=== PATIENT | male | born 1970 | race Hispanic/Latino ===

== ENCOUNTER 2018-03-01 14:43 | Emergency (ER) | payer SELFPAY ==
[2018-03-01 15:50] LABS: #Basophils 0.1 thou/uL (0.0-0.2); #Eosinphils 0.1 thou/uL (0.0-0.7); #Lymphocytes 1.7 thou/uL (1.20-3.40); #Monocytes 0.6 thou/uL (0.11-0.59); #Neutrophils 3.2 thou/uL (1.40-6.50); %Basophils 1.4 % (0.0-1.0); %Eosinophils 1.7 % (0.0-10.0); %Lymphocytes 29.2 % (21.0-51.0); %Monocytes 11.2 % (0.0-10.0); %Neutrophils 56.6 % (42.0-75.0); Hemoglobin 17.1 g/dL (14.0-18.0); Mean Corpuscular HGB CONC 36.6 g/dL (32.0-36.0); Mean Corpuscular Hemoglobin 33.8 pg (27.0-31.0); Mean Corpuscular Volume 92.4 fL (78.0-98.0); Mean Platelet Volume 8.7 fL (7.4-10.4); Platelet Count 108 thou/uL (130-400); RBC Distribution Width 12.4 % (11.5-14.5); Red Blood Cell (RBC) Count 5.06 mill/uL (4.70-6.10); White Blood Cell (WBC) Count 5.7 thou/uL (4.8-10.8)
[2018-03-01 15:54] LABS: Base Excess-Venous 4.9 mmol/L (0 (+/- 2.5)); Bicarbonate (HCO3v) 29.6 mmol/L (1.0-85.0); CO2 Tension (PvCO2) 42.7 mmHg (41.0-51.0); Calcium, Ionized 1.01 mmol/L (1.12-1.32); Hemoglobin - Calc 18.4 g/dL (12.0-18.0); O2 Tension (PvO2) 107.4 mmHg (35.0-45.0); Potassium 3.7 mmol/L (3.4-4.7); vO2 Saturation-calc 98.4 % (94-98)
[2018-03-01 16:12] LABS: ALT (SGPT) 42 U/L (8-55); AST (SGOT) 71 U/L (5-34); Albumin 4.2 g/dL (3.5-5.0); Alkaline Phosphatase 92 U/L (40-150); Anion Gap 18 mmol/L (10-20); BUN (Urea Nitrogen) 14 mg/dL (8.9-20.6); Bilirubin, Total 2.9 mg/dL (0.2-1.2); CK (CPK) 43 U/L (30-200); CKMB 0.9 ng/mL (0-6.6); Calc. Creatinine Clearance 0 mL/min (70-130); Carbon Dioxide 26 mmol/L (22-29); Chloride 98 mmol/L (98-107); Estimated GFR-MDRD 82; Globulin 5.4 g/dL (2.4-3.5); Glucose 275 mg/dL (70-105); Potassium 3.7 mmol/L (3.5-5.1); Protein, Total 9.6 g/dL (6.0-8.3); Sodium 138 mmol/L (136-145); Troponin I Less than 0.010 ng/mL (< 0.028)
--- NOTE | 2018-03-01 16:26 | CT ---
CT HEAD NONCONTRAST: 03/01/18 HISTORY: Dizziness. Hypertension. Altered mental status. FINDINGS: No comparison. There is no evidence of acute intracranial hemorrhage or infarct. Ventricles appear no rmal in size, shape and position. There is no mass effect or shift of midline structures. IMPRESSION: No acute intracranial abnormalities are demonstrated on noncontrast CT head. POS: [facility]
== END 2018-03-01 17:54 | disposition home or self-care (01) ==
LOC: ERS 14:43
DX: H81.10 Benign paroxysmal vertigo, unspecified ear (principal); E11.65 Type 2 diabetes mellitus with hyperglycemia; I10 Essential (primary) hypertension; Z87.891 Personal history of nicotine dependence
CPT/HCPCS: 36416; 70450; 80053; 82330; 82550; 82553; 82803; 84484; 85025; 93005; 96360

== ENCOUNTER 2018-04-21 18:11 | Emergency (ER) | payer SELFPAY ==
--- NOTE | 2018-04-21 19:59 | CT ---
CT OF BRAIN PERFORMED WITHOUT CONTRAST ENHANCEMENT: 04/21/18 HISTORY: Fell and hit head on floor. COMPARISON: 03/01/18 study. The ventricular and cisternal system is within normal limits. There is no signs of intracerebral hemo rrhage or extra-axial fluid collections. Mastoid air cells are clear. There is minimal maxillary sinu s mucosal disease. IMPRESSION: No acute intracranial abnormalities. POS: [facility]
--- NOTE | 2018-04-21 20:07 | CT ---
CT OF CERVICAL SPINE PERFORMED WITHOUT CONTRAST ENHANCEMENT: 04/21/18 HISTORY: Head injury after fall. Vertebral bodies are normal in height. Disc spaces appear well preserved and the facets are in normal alignment. There is no evidence for any significant canal or foraminal narrowing. There is no CT miriam dence for fracture. The lung apices are clear. IMPRESSION: No CT evidence of fracture of the cervical spine. POS: [facility]
[2018-04-21] MEDS ORDERED: Adacel (T-DAP) 0.5 ML VIAL ONE (21:05)
== END 2018-04-21 21:23 | disposition home or self-care (01) ==
LOC: ERS 18:11
DX: S06.9X1A Unspecified intracranial injury with loss of consciousness of 30 minutes or less, initial encounter (principal); S00.03XA Contusion of scalp, initial encounter; I10 Essential (primary) hypertension; E11.9 Type 2 diabetes mellitus without complications; Z87.891 Personal history of nicotine dependence; W55.22XA Struck by cow, initial encounter
CPT/HCPCS: 70450; 72125; 90471; 90715

== ENCOUNTER 2022-08-17 15:53 | Emergency (ER) | payer SELFPAY ==
[~2022-08-17 15:53] MED LIST: Iopamidol-370 76% 500 ML 1 ML ONE
[2022-08-17] MEDS ORDERED: Aspirin Chewable 81 MG TAB ONE (16:17)
[2022-08-17 16:44] LABS: #Monocytes 1.1 thou/uL (0.11-0.59); #Neutrophils 6.8 thou/uL (1.40-6.50); %Basophils 0.4 % (0.0-1.0); %Eosinophils 0.6 % (0.0-10.0); %Lymphocytes 11.2 % (21.0-51.0); %Monocytes 12.5 % (0.0-10.0); %Neutrophils 75.4 % (42.0-75.0); Hemoglobin 13.6 g/dL (14.0-18.0); Mean Corpuscular HGB CONC 34.3 g/dL (32.0-36.0); Mean Corpuscular Hemoglobin 31.8 pg (27.0-31.0); Mean Corpuscular Volume 92.8 fl (78.0-98.0); Mean Platelet Volume 8.6 fL (7.4-10.4); Platelet Count 195 10x3/uL (130-400); RBC Distribution Width 11.6 % (11.5-14.5); Red Blood Cell (RBC) Count 4.29 mill/uL (4.70-6.10)
[2022-08-17 17:03] LABS: ALT (SGPT) 33 U/L (8-55); AST (SGOT) 52 U/L (5-34); Albumin 2.4 g/dL (3.5-5.0); Alkaline Phosphatase 114 U/L (40-110); Anion Gap 12 mmol/L (10-20); BUN (Urea Nitrogen) 19 mg/dL (8.4-25.7); Bilirubin, Total 2.9 mg/dL (0.2-1.2); Calc. Creatinine Clearance 0 mL/min (70-130); Calcium 8.6 mg/dL (7.8-10.44); Carbon Dioxide 28 mmol/L (22-29); Chloride 90 mmol/L (98-107); Estimated GFR 84; Globulin 5.5 g/dL (2.4-3.5); Glucose 338 mg/dL (70-105); Potassium 4.1 mmol/L (3.5-5.1); Protein, Total 7.9 g/dL (6.0-8.3); Sodium 126 mmol/L (136-145)
[2022-08-17] MEDS ORDERED: Morphine 4 MG/ML VIAL ONE (17:17)
[2022-08-17] MEDS ORDERED: Ondansetron PF 4 MG/2 ML Vial ONE (17:17)
[2022-08-17] MEDS ORDERED: Ketorolac Tromethamine 30 MG/ML VIAL ONE (18:31)
== END 2022-08-17 18:32 | disposition home or self-care (01) ==
LOC: ERS 15:53
DX: M25.531 Pain in right wrist (principal); I10 Essential (primary) hypertension; E11.9 Type 2 diabetes mellitus without complications; Z87.891 Personal history of nicotine dependence
CPT/HCPCS: 71275; 80053; 84484; 85025; 86140; 93005; 96374; 96375; J1885; J2270; J2405; Q9967

== ENCOUNTER 2022-08-22 14:34 | Inpatient (IN) | payer MEDICAID, SELFPAY ==
[2022-08-22 15:11] LABS: Hemoglobin 12.6 g/dL (14.0-18.0); Mean Corpuscular HGB CONC 33.8 g/dL (32.0-36.0); Mean Corpuscular Hemoglobin 31.5 pg (27.0-31.0); Mean Corpuscular Volume 93.3 fl (78.0-98.0); Mean Platelet Volume 9.1 fL (7.4-10.4); Platelet Count 289 10x3/uL (130-400); RBC Distribution Width 11.4 % (11.5-14.5); Red Blood Cell (RBC) Count 4.01 mill/uL (4.70-6.10); White Blood Cell (WBC) Count 11.2 10x3/uL (4.8-10.8)
[2022-08-22 15:34] LABS: ALT (SGPT) 37 U/L (8-55); AST (SGOT) 44 U/L (5-34); Alkaline Phosphatase 153 U/L (40-110); Anion Gap 15 mmol/L (10-20); BUN (Urea Nitrogen) 24 mg/dL (8.4-25.7); Bilirubin, Total 2.6 mg/dL (0.2-1.2); Calc. Creatinine Clearance 0 mL/min (70-130); Calcium 8.2 mg/dL (7.8-10.44); Carbon Dioxide 26 mmol/L (22-29); Chloride 92 mmol/L (98-107); Estimated GFR 55; Globulin 5.5 g/dL (2.4-3.5); Glucose 364 mg/dL (70-105); Potassium 4.5 mmol/L (3.5-5.1); Protein, Total 7.5 g/dL (6.0-8.3); Sodium 128 mmol/L (136-145)
[2022-08-22 15:47] LABS: Band 18 % (5-11); Lymphocytes 12 % (21-51); MDiff Complete? YES; Monocytes 11 % (0-10); Neutrophil 58 % (42-75); Platelet Morphology Comment Appears Adequate; RBC Morphology Normal
[2022-08-22] MEDS ORDERED: VANCOMYCIN 2 GRAM/500 ML BAG 2 GM in Premix Bag 1 BAG IVPB SCH (21:00)
[2022-08-22] MEDS ORDERED: Morphine 4 MG/ML VIAL ONE (22:02)
[2022-08-22] MEDS ORDERED: Lactated Ringer's 1,000 ML IV SCH (23:45)
[2022-08-22] MEDS ORDERED: Senokot S 8.6-50 MG TAB PO PRN (23:51)
[2022-08-22] MEDS ORDERED: Calcium Carbonate 500 MG ChewTAB PO PRN (23:51)
[2022-08-22] MEDS ORDERED: Acetaminophen 325 MG TAB PO PRN (23:51)
[2022-08-22] MEDS ORDERED: Ondansetron ODT 4 MG TAB PO PRN (23:51)
[2022-08-22 23:54] VITALS: BMI 43.0
[2022-08-22] MEDS ORDERED: Dextrose 5% in Water 1,000 ML IV PRN (23:55)
[2022-08-22] MEDS ORDERED: Dextrose 50% Abboject 50 ML SYRINGE SLOW IVP PRN (23:55)
[2022-08-22] MEDS ORDERED: Piperacillin/Tazobactam 3.375 GM in Sodium Chloride 0.9% 100 ML IVPB SCH (23:59)
[2022-08-23 00:11] LABS: Hemoglobin A1c 9.8 % (4.0-6.0)
[2022-08-23] MEDS ORDERED: Famotidine 20 MG TAB ONE ×2 (00:40→08:01)
[2022-08-23] MEDS ORDERED: Piperacillin/Tazobactam 3.375 GM VIAL ONE ×3 (00:40→12:33)
[2022-08-23] MEDS: Piperacillin/Tazobactam 3.375 GM in Sodium Chloride 0.9% 100 ML IVPB SCH ×3 (05:17→22:29)
[2022-08-23 05:56] LABS: SARS-CoV-2 NAA Rapid Test Not Detected (NotDetected)
[2022-08-23 06:55] LABS: Hemoglobin 11.6 g/dL (14.0-18.0); Mean Corpuscular HGB CONC 33.5 g/dL (32.0-36.0); Mean Corpuscular Hemoglobin 31.8 pg (27.0-31.0); Mean Corpuscular Volume 94.8 fl (78.0-98.0); Mean Platelet Volume 9.3 fL (7.4-10.4); Platelet Count 263 10x3/uL (130-400); RBC Distribution Width 11.7 % (11.5-14.5); Red Blood Cell (RBC) Count 3.66 mill/uL (4.70-6.10); White Blood Cell (WBC) Count 15.1 10x3/uL (4.8-10.8)
[2022-08-23 07:10] LABS: ALT (SGPT) 32 U/L (8-55); AST (SGOT) 49 U/L (5-34); Alkaline Phosphatase 129 U/L (40-110); Anion Gap 11 mmol/L (10-20); BUN (Urea Nitrogen) 26 mg/dL (8.4-25.7); Bilirubin, Total 2.4 mg/dL (0.2-1.2); Calc. Creatinine Clearance 101 mL/min (70-130); Carbon Dioxide 26 mmol/L (22-29); Chloride 93 mmol/L (98-107); Estimated GFR 50; Glucose 212 mg/dL (70-105); Potassium 4.5 mmol/L (3.5-5.1); Sodium 125 mmol/L (136-145)
[2022-08-23 07:20] LABS: Band 29 % (5-11); Lymphocytes 4 % (21-51); MDiff Complete? YES; Monocytes 11 % (0-10); Neutrophil 54 % (42-75); Platelet Morphology Comment Appears Adequate; RBC Morphology Normal; Reactive Lymphocytes 2 % (0-10)
[2022-08-23] MEDS ORDERED: Lisinopril 10 MG TAB ONE (08:01)
[2022-08-23] MEDS: Famotidine 20 MG TAB PO SCH ×2 (08:06→22:30)
[2022-08-23] MEDS ORDERED: Lisinopril 10 MG TAB PO SCH (09:00)
[2022-08-23] MEDS ORDERED: Vancomycin 1.5 GRAM/300 ML BAG IVPB SCH (09:00)
[2022-08-23] MEDS ORDERED: Amlodipine 5 MG TAB PO SCH (09:45)
[2022-08-23] MEDS ORDERED: Morphine 2 MG/ML VIAL ONE (10:02)
[2022-08-23] MEDS ORDERED: Amlodipine 5 MG TAB ONE (10:03)
[2022-08-23] MEDS: Morphine 2 MG/ML VIAL SLOW IVP PRN ×2 (10:04→22:22)
[2022-08-23] MEDS: Vancomycin 1.5 GRAM/300 ML BAG 1.5 GM in Premix Bag 1 BAG IVPB SCH (10:10)
[2022-08-23] MEDS ORDERED: fentaNYL PF 100 MCG/2 ML SYRINGE ONE ×3 (17:08→18:34)
[2022-08-23] MEDS ORDERED: PROPOFOL 200 MG/20 ML VIAL ONE (17:27)
[2022-08-23] MEDS ORDERED: Succinylcholine Chloride 100 MG/5 ML SYRINGE FS ONE (17:27)
[2022-08-23] MEDS ORDERED: ePHEDrine 50 MG/ML VIAL ONE (17:27)
[2022-08-23] MEDS ORDERED: Lidocaine 1% PF 5 ML VIAL ONE (17:27)
[2022-08-23] MEDS ORDERED: Ondansetron HCl/PF 4 MG/2 ML Vial IVP PRN (18:44)
[2022-08-23] MEDS ORDERED: Promethazine HCl 25 MG/ML VIAL IM PRN (18:44)
[2022-08-23] MEDS ORDERED: HYDROmorphone 2 MG/ML VIAL SLOW IVP PRN (18:44)
[2022-08-23] MEDS ORDERED: HYDROmorphone 0.5 MG/0.5 ML SYRINGE ONE (19:33)
[2022-08-23] MEDS ORDERED: Insulin Glargine 30 UNITS/0.3 ML VIAL SC SCH (21:00)
[2022-08-23] MEDS: Insulin Glargine 30 UNITS/0.3 ML VIAL SC SCH (22:30)
[2022-08-23] MEDS: Sodium Chloride 0.9% 1,000 ML IV SCH (22:32)
[2022-08-24] MEDS: Vancomycin 1.5 GRAM/300 ML BAG 1.5 GM in Premix Bag 1 BAG IVPB SCH ×2 (01:33→11:25)
[2022-08-24] MEDS: Morphine 2 MG/ML VIAL SLOW IVP PRN ×5 (01:56→19:40)
[2022-08-24] MEDS: Piperacillin/Tazobactam 3.375 GM in Sodium Chloride 0.9% 100 ML IVPB SCH ×3 (05:38→19:42)
[2022-08-24] MEDS: Sodium Chloride 0.9% 1,000 ML IV SCH ×2 (05:40→13:32)
[2022-08-24 06:19] LABS: #Basophils 0.1 thou/uL (0.0-0.2); #Lymphocytes 1.7 thou/uL (1.20-3.40); #Monocytes 1.9 thou/uL (0.11-0.59); #Neutrophils 9.6 thou/uL (1.40-6.50); %Basophils 0.6 % (0.0-1.0); %Eosinophils 0.2 % (0.0-10.0); %Lymphocytes 12.7 % (21.0-51.0); %Monocytes 14.1 % (0.0-10.0); %Neutrophils 72.4 % (42.0-75.0); Hemoglobin 11.2 g/dL (14.0-18.0); Mean Corpuscular HGB CONC 33.4 g/dL (32.0-36.0); Mean Corpuscular Hemoglobin 31.4 pg (27.0-31.0); Mean Platelet Volume 8.7 fL (7.4-10.4); Platelet Count 280 10x3/uL (130-400); RBC Distribution Width 11.7 % (11.5-14.5); Red Blood Cell (RBC) Count 3.57 mill/uL (4.70-6.10); White Blood Cell (WBC) Count 13.3 10x3/uL (4.8-10.8)
[2022-08-24 06:30] LABS: ALT (SGPT) 29 U/L (8-55); AST (SGOT) 36 U/L (5-34); Albumin 1.7 g/dL (3.5-5.0); Alkaline Phosphatase 114 U/L (40-110); Anion Gap 13 mmol/L (10-20); BUN (Urea Nitrogen) 27 mg/dL (8.4-25.7); Bilirubin, Total 2.3 mg/dL (0.2-1.2); Calc. Creatinine Clearance 129 mL/min (70-130); Calcium 7.9 mg/dL (7.8-10.44); Carbon Dioxide 22 mmol/L (22-29); Chloride 95 mmol/L (98-107); Estimated GFR 67; Globulin 5.1 g/dL (2.4-3.5); Glucose 158 mg/dL (70-105); Potassium 4.3 mmol/L (3.5-5.1); Protein, Total 6.8 g/dL (6.0-8.3); Sodium 126 mmol/L (136-145)
[2022-08-24] MEDS: HumaLOG 300 UNITS/3 ML VIAL SC PRN (06:45)
[2022-08-24] MEDS: Amlodipine 5 MG TAB PO SCH (08:05)
[2022-08-24] MEDS: Famotidine 20 MG TAB PO SCH ×2 (09:21→19:47)
[2022-08-24 10:28] LABS: Vancomycin, Trough 26.8 ug/mL
[2022-08-24] MEDS: Insulin Glargine 30 UNITS/0.3 ML VIAL SC SCH (19:46)
[2022-08-24] MEDS: Vancomycin 1 GM in Premix Bag 1 BAG IVPB SCH (22:10)
[2022-08-25] MEDS: Piperacillin/Tazobactam 3.375 GM in Sodium Chloride 0.9% 100 ML IVPB SCH ×3 (03:28→20:16)
[2022-08-25] MEDS: Morphine 2 MG/ML VIAL SLOW IVP PRN ×3 (03:32→22:25)
[2022-08-25 05:34] LABS: #Basophils 0.1 thou/uL (0.0-0.2); #Eosinphils 0.2 thou/uL (0.0-0.7); #Lymphocytes 1.5 thou/uL (1.20-3.40); #Monocytes 1.4 thou/uL (0.11-0.59); #Neutrophils 6.4 thou/uL (1.40-6.50); %Basophils 0.8 % (0.0-1.0); %Eosinophils 1.6 % (0.0-10.0); %Lymphocytes 15.8 % (21.0-51.0); %Monocytes 14.9 % (0.0-10.0); %Neutrophils 66.9 % (42.0-75.0); Hemoglobin 11.2 g/dL (14.0-18.0); Mean Corpuscular HGB CONC 33.8 g/dL (32.0-36.0); Mean Corpuscular Hemoglobin 31.7 pg (27.0-31.0); Mean Corpuscular Volume 93.7 fl (78.0-98.0); Mean Platelet Volume 8.4 fL (7.4-10.4); Platelet Count 264 10x3/uL (130-400); RBC Distribution Width 11.6 % (11.5-14.5); Red Blood Cell (RBC) Count 3.53 mill/uL (4.70-6.10); White Blood Cell (WBC) Count 9.6 10x3/uL (4.8-10.8)
[2022-08-25 05:48] LABS: INR-International Normal Ratio 1.3; Prothrombin Time 16.9 sec (12.0-14.7)
[2022-08-25 05:52] LABS: Anion Gap 11 mmol/L (10-20); BUN (Urea Nitrogen) 18 mg/dL (8.4-25.7); Calc. Creatinine Clearance 158 mL/min (70-130); Calcium 8.2 mg/dL (7.8-10.44); Carbon Dioxide 25 mmol/L (22-29); Chloride 98 mmol/L (98-107); Estimated GFR 85; Glucose 145 mg/dL (70-105); Sodium 130 mmol/L (136-145)
[2022-08-25] MEDS: Vancomycin 1 GM in Premix Bag 1 BAG IVPB SCH (09:20)
[2022-08-25] MEDS: Famotidine 20 MG TAB PO SCH ×2 (09:20→20:16)
[2022-08-25] MEDS: Amlodipine 5 MG TAB PO SCH (09:20)
[2022-08-25] MEDS: Sodium Chloride 0.9% 1,000 ML IV SCH ×2 (09:21→17:48)
[2022-08-25] MEDS: HumaLOG 300 UNITS/3 ML VIAL SC PRN ×2 (12:04→17:32)
[2022-08-25 18:15] LABS: Troponin I Less than 0.010 ng/mL (< 0.028)
[2022-08-25] MEDS: Insulin Glargine 30 UNITS/0.3 ML VIAL SC SCH (20:15)
[2022-08-26] MEDS: Morphine 2 MG/ML VIAL SLOW IVP PRN ×5 (02:53→19:54)
[2022-08-26] MEDS: Sodium Chloride 0.9% 1,000 ML IV SCH ×2 (04:36→11:46)
[2022-08-26] MEDS: Piperacillin/Tazobactam 3.375 GM in Sodium Chloride 0.9% 100 ML IVPB SCH ×2 (05:20→11:45)
[2022-08-26] MEDS: HumaLOG 300 UNITS/3 ML VIAL SC PRN ×2 (05:24→21:15)
[2022-08-26 05:31] LABS: #Eosinphils 0.1 thou/uL (0.0-0.7); #Lymphocytes 1.5 thou/uL (1.20-3.40); #Monocytes 1.1 thou/uL (0.11-0.59); #Neutrophils 4.8 thou/uL (1.40-6.50); %Basophils 0.8 % (0.0-1.0); %Lymphocytes 19.6 % (21.0-51.0); %Monocytes 14.1 % (0.0-10.0); %Neutrophils 63.6 % (42.0-75.0); Hemoglobin 11.4 g/dL (14.0-18.0); Mean Corpuscular HGB CONC 34.2 g/dL (32.0-36.0); Mean Corpuscular Hemoglobin 31.9 pg (27.0-31.0); Mean Corpuscular Volume 93.3 fl (78.0-98.0); Mean Platelet Volume 8.3 fL (7.4-10.4); Platelet Count 262 10x3/uL (130-400); RBC Distribution Width 11.6 % (11.5-14.5); Red Blood Cell (RBC) Count 3.58 mill/uL (4.70-6.10); White Blood Cell (WBC) Count 7.5 10x3/uL (4.8-10.8)
[2022-08-26 05:32] LABS: #Basophils 0.1 thou/uL (0.0-0.2)
[2022-08-26 05:54] LABS: Anion Gap 12 mmol/L (10-20); BUN (Urea Nitrogen) 14 mg/dL (8.4-25.7); Calc. Creatinine Clearance 191 mL/min (70-130); Calcium 8.2 mg/dL (7.8-10.44); Carbon Dioxide 24 mmol/L (22-29); Chloride 97 mmol/L (98-107); Estimated GFR 104; Glucose 192 mg/dL (70-105); Potassium 3.8 mmol/L (3.5-5.1); Sodium 129 mmol/L (136-145)
[2022-08-26] MEDS: Famotidine 20 MG TAB PO SCH ×2 (08:14→19:53)
[2022-08-26] MEDS: Amlodipine 5 MG TAB PO SCH (08:14)
[2022-08-26] MEDS ORDERED: FLU VACC QS2022-23(6MOS UP)/PF 60 MCG/0.5 ML SYRINGE IM ONE (09:00)
[2022-08-26] MEDS: HYDROcodone/Acetaminophen 5/325 mg Tablet PO PRN ×3 (13:51→22:11)
[2022-08-26] MEDS: CEFAZOLIN 2 GM in Sodium Chloride 0.9% 100 ML IVPB SCH ×2 (15:36→23:54)
[2022-08-26] MEDS: Insulin Glargine 30 UNITS/0.3 ML VIAL SC SCH (21:07)
[2022-08-27] MEDS: Morphine 2 MG/ML VIAL SLOW IVP PRN ×3 (00:32→20:49)
[2022-08-27 05:35] LABS: Hemoglobin 11.5 g/dL (14.0-18.0); Mean Corpuscular HGB CONC 33.7 g/dL (32.0-36.0); Mean Corpuscular Hemoglobin 31.4 pg (27.0-31.0); Mean Corpuscular Volume 93.2 fl (78.0-98.0); Mean Platelet Volume 8.3 fL (7.4-10.4); Platelet Count 255 10x3/uL (130-400); RBC Distribution Width 11.7 % (11.5-14.5); Red Blood Cell (RBC) Count 3.66 mill/uL (4.70-6.10); White Blood Cell (WBC) Count 6.8 10x3/uL (4.8-10.8)
[2022-08-27 05:55] LABS: Anion Gap 12 mmol/L (10-20); BUN (Urea Nitrogen) 11 mg/dL (8.4-25.7); Calc. Creatinine Clearance 187 mL/min (70-130); Calcium 8.1 mg/dL (7.8-10.44); Carbon Dioxide 25 mmol/L (22-29); Chloride 97 mmol/L (98-107); Estimated GFR 103; Glucose 177 mg/dL (70-105); Potassium 3.7 mmol/L (3.5-5.1); Sodium 130 mmol/L (136-145)
[2022-08-27] MEDS: HumaLOG 300 UNITS/3 ML VIAL SC PRN (06:28)
[2022-08-27 06:40] LABS: Band 12 % (5-11); Eosinophils 5 % (0-10); Lymphocytes 23 % (21-51); MDiff Complete? YES; Monocytes 16 % (0-10); Neutrophil 44 % (42-75)
[2022-08-27] MEDS: CEFAZOLIN 2 GM in Sodium Chloride 0.9% 100 ML IVPB SCH ×2 (09:10→15:35)
[2022-08-27] MEDS: Amlodipine 5 MG TAB PO SCH ×2 (09:10→15:02)
[2022-08-27] MEDS: Famotidine 20 MG TAB PO SCH ×2 (09:10→20:50)
[2022-08-27] MEDS: HYDROcodone/Acetaminophen 5/325 mg Tablet PO PRN ×2 (09:20→18:58)
[2022-08-27] MEDS ORDERED: Amlodipine 10 MG TAB PO SCH (13:00)
[2022-08-27] MEDS: Insulin Glargine 30 UNITS/0.3 ML VIAL SC SCH (21:32)
[2022-08-28] MEDS: CEFAZOLIN 2 GM in Sodium Chloride 0.9% 100 ML IVPB SCH ×3 (00:06→15:39)
[2022-08-28] MEDS: HYDROcodone/Acetaminophen 5/325 mg Tablet PO PRN ×2 (03:29→15:38)
[2022-08-28 05:36] LABS: #Basophils 0.1 thou/uL (0.0-0.2); #Eosinphils 0.2 thou/uL (0.0-0.7); #Lymphocytes 1.7 thou/uL (1.20-3.40); #Neutrophils 4.1 thou/uL (1.40-6.50); %Eosinophils 2.7 % (0.0-10.0); %Lymphocytes 24.2 % (21.0-51.0); %Monocytes 14.2 % (0.0-10.0); %Neutrophils 57.9 % (42.0-75.0); Hemoglobin 11.2 g/dL (14.0-18.0); Mean Corpuscular HGB CONC 33.4 g/dL (32.0-36.0); Mean Corpuscular Volume 92.9 fl (78.0-98.0); Mean Platelet Volume 8.3 fL (7.4-10.4); Platelet Count 238 10x3/uL (130-400); RBC Distribution Width 11.5 % (11.5-14.5); Red Blood Cell (RBC) Count 3.62 mill/uL (4.70-6.10)
[2022-08-28 05:59] LABS: Anion Gap 11 mmol/L (10-20); BUN (Urea Nitrogen) 9 mg/dL (8.4-25.7); Calc. Creatinine Clearance 213 mL/min (70-130); Calcium 8.2 mg/dL (7.8-10.44); Carbon Dioxide 24 mmol/L (22-29); Chloride 98 mmol/L (98-107); Estimated GFR 107; Glucose 138 mg/dL (70-105); Potassium 3.6 mmol/L (3.5-5.1); Sodium 129 mmol/L (136-145)
[2022-08-28] MEDS: Morphine 2 MG/ML VIAL SLOW IVP PRN ×2 (07:30→19:04)
[2022-08-28] MEDS: Amlodipine 5 MG TAB PO SCH (08:43)
[2022-08-28] MEDS: Famotidine 20 MG TAB PO SCH ×2 (08:47→21:02)
[2022-08-28] MEDS: HumaLOG 300 UNITS/3 ML VIAL SC PRN ×2 (11:33→16:11)
[2022-08-28] MEDS: Insulin Glargine 30 UNITS/0.3 ML VIAL SC SCH (21:02)
[2022-08-29] MEDS: CEFAZOLIN 2 GM in Sodium Chloride 0.9% 100 ML IVPB SCH ×4 (00:28→23:32)
[2022-08-29 05:25] LABS: #Eosinphils 0.2 thou/uL (0.0-0.7); #Neutrophils 6.3 thou/uL (1.40-6.50); %Basophils 0.5 % (0.0-1.0); %Eosinophils 2.1 % (0.0-10.0); %Lymphocytes 21.1 % (21.0-51.0); %Monocytes 10.2 % (0.0-10.0); %Neutrophils 66.1 % (42.0-75.0); Hemoglobin 11.2 g/dL (14.0-18.0); Mean Corpuscular Hemoglobin 30.7 pg (27.0-31.0); Mean Corpuscular Volume 92.9 fl (78.0-98.0); Mean Platelet Volume 8.1 fL (7.4-10.4); Platelet Count 239 10x3/uL (130-400); RBC Distribution Width 11.8 % (11.5-14.5); Red Blood Cell (RBC) Count 3.65 mill/uL (4.70-6.10); White Blood Cell (WBC) Count 9.5 10x3/uL (4.8-10.8)
[2022-08-29 06:13] LABS: Anion Gap 11 mmol/L (10-20); BUN (Urea Nitrogen) 7 mg/dL (8.4-25.7); Calc. Creatinine Clearance 210 mL/min (70-130); Calcium 8.2 mg/dL (7.8-10.44); Carbon Dioxide 26 mmol/L (22-29); Chloride 98 mmol/L (98-107); Estimated GFR 107; Glucose 115 mg/dL (70-105); Potassium 3.6 mmol/L (3.5-5.1); Sodium 131 mmol/L (136-145)
[2022-08-29] MEDS: HYDROcodone/Acetaminophen 5/325 mg Tablet PO PRN (07:56)
[2022-08-29] MEDS: Famotidine 20 MG TAB PO SCH ×2 (08:07→20:49)
[2022-08-29] MEDS: Amlodipine 5 MG TAB PO SCH (08:07)
[2022-08-29] MEDS ORDERED: Magnevist 469MG/ML 20 ML VIAL ONE (13:18)
[2022-08-29] MEDS ORDERED: PROPOFOL 200 MG/20 ML VIAL ONE (14:13)
[2022-08-29] MEDS ORDERED: Lidocaine 1% PF 5 ML VIAL ONE (14:13)
[2022-08-29 16:31] LABS: HIV (1/2) Antibody/Antigen Non-Reactive (NonReactive); HIV 1/2 INDEX 0.21 S/CO (<1.00)
[2022-08-29] MEDS: Morphine 2 MG/ML VIAL SLOW IVP PRN ×2 (17:20→23:32)
[2022-08-29] MEDS: Insulin Glargine 30 UNITS/0.3 ML VIAL SC SCH (20:50)
[2022-08-30] MEDS: Famotidine 20 MG TAB PO SCH ×2 (08:35→19:55)
[2022-08-30] MEDS: HYDROcodone/Acetaminophen 5/325 mg Tablet PO PRN ×3 (08:35→19:57)
[2022-08-30] MEDS: Amlodipine 5 MG TAB PO SCH (08:35)
[2022-08-30] MEDS: CEFAZOLIN 2 GM in Sodium Chloride 0.9% 100 ML IVPB SCH ×3 (08:37→23:14)
[2022-08-30] MEDS: Insulin Glargine 30 UNITS/0.3 ML VIAL SC SCH (19:54)
[2022-08-31 06:46] LABS: #Basophils 0.1 thou/uL (0.0-0.2); #Eosinphils 0.3 thou/uL (0.0-0.7); #Monocytes 0.9 thou/uL (0.11-0.59); #Neutrophils 4.5 thou/uL (1.40-6.50); %Basophils 1.1 % (0.0-1.0); %Eosinophils 3.6 % (0.0-10.0); %Lymphocytes 25.7 % (21.0-51.0); %Monocytes 11.4 % (0.0-10.0); %Neutrophils 58.2 % (42.0-75.0); Hemoglobin 11.3 g/dL (14.0-18.0); Mean Corpuscular HGB CONC 35.5 g/dL (32.0-36.0); Mean Corpuscular Hemoglobin 33.3 pg (27.0-31.0); Mean Platelet Volume 8.1 fL (7.4-10.4); Platelet Count 208 10x3/uL (130-400); RBC Distribution Width 11.6 % (11.5-14.5); Red Blood Cell (RBC) Count 3.39 mill/uL (4.70-6.10); White Blood Cell (WBC) Count 7.7 10x3/uL (4.8-10.8)
[2022-08-31 07:13] LABS: Anion Gap 10 mmol/L (10-20); BUN (Urea Nitrogen) 12 mg/dL (8.4-25.7); Calc. Creatinine Clearance 205 mL/min (70-130); Calcium 8.5 mg/dL (7.8-10.44); Carbon Dioxide 25 mmol/L (22-29); Chloride 100 mmol/L (98-107); Estimated GFR 106; Glucose 95 mg/dL (70-105); Potassium 3.2 mmol/L (3.5-5.1); Sodium 132 mmol/L (136-145)
[2022-08-31] MEDS: CEFAZOLIN 2 GM in Sodium Chloride 0.9% 100 ML IVPB SCH ×2 (08:16→15:50)
[2022-08-31] MEDS: Famotidine 20 MG TAB PO SCH ×2 (08:17→20:51)
[2022-08-31] MEDS: Amlodipine 5 MG TAB PO SCH (08:17)
[2022-08-31] MEDS ORDERED: Potassium Chloride 20 MEQ TAB PO SCH (09:00)
[2022-08-31] MEDS ORDERED: Iopamidol 370 76% 100 ML VIAL ONE (09:15)
[2022-08-31] MEDS: HYDROcodone/Acetaminophen 5/325 mg Tablet PO PRN (10:17)
[2022-08-31] MEDS: Insulin Glargine 30 UNITS/0.3 ML VIAL SC SCH (20:53)
[2022-09-01] MEDS: CEFAZOLIN 2 GM in Sodium Chloride 0.9% 100 ML IVPB SCH ×4 (00:19→23:08)
[2022-09-01] MEDS: HYDROcodone/Acetaminophen 5/325 mg Tablet PO PRN ×4 (03:57→23:08)
[2022-09-01 05:42] LABS: #Basophils 0.1 thou/uL (0.0-0.2); #Eosinphils 0.2 thou/uL (0.0-0.7); #Lymphocytes 1.5 thou/uL (1.20-3.40); #Monocytes 0.7 thou/uL (0.11-0.59); #Neutrophils 4.1 thou/uL (1.40-6.50); %Basophils 1.4 % (0.0-1.0); %Eosinophils 3.6 % (0.0-10.0); %Monocytes 9.9 % (0.0-10.0); %Neutrophils 62.2 % (42.0-75.0); Hemoglobin 11.3 g/dL (14.0-18.0); Mean Corpuscular HGB CONC 33.8 g/dL (32.0-36.0); Mean Corpuscular Hemoglobin 32.3 pg (27.0-31.0); Mean Corpuscular Volume 95.6 fl (78.0-98.0); Platelet Count 217 10x3/uL (130-400); RBC Distribution Width 11.9 % (11.5-14.5); Red Blood Cell (RBC) Count 3.51 mill/uL (4.70-6.10); White Blood Cell (WBC) Count 6.6 10x3/uL (4.8-10.8)
[2022-09-01 06:01] LABS: Anion Gap 12 mmol/L (10-20); BUN (Urea Nitrogen) 15 mg/dL (8.4-25.7); Calc. Creatinine Clearance 205 mL/min (70-130); Calcium 8.4 mg/dL (7.8-10.44); Carbon Dioxide 25 mmol/L (22-29); Chloride 100 mmol/L (98-107); Estimated GFR 106; Glucose 109 mg/dL (70-105); Potassium 3.6 mmol/L (3.5-5.1); Sodium 133 mmol/L (136-145)
[2022-09-01] MEDS: Amlodipine 5 MG TAB PO SCH (08:30)
[2022-09-01] MEDS: Famotidine 20 MG TAB PO SCH ×2 (08:30→20:12)
[2022-09-01] MEDS: Insulin Glargine 30 UNITS/0.3 ML VIAL SC SCH (20:12)
[2022-09-02 06:00] LABS: #Basophils 0.1 thou/uL (0.0-0.2); #Eosinphils 0.3 thou/uL (0.0-0.7); #Lymphocytes 2.1 thou/uL (1.20-3.40); #Monocytes 0.9 thou/uL (0.11-0.59); #Neutrophils 3.6 thou/uL (1.40-6.50); %Basophils 1.2 % (0.0-1.0); %Lymphocytes 29.8 % (21.0-51.0); %Monocytes 13.5 % (0.0-10.0); %Neutrophils 51.5 % (42.0-75.0); Hemoglobin 10.8 g/dL (14.0-18.0); Mean Corpuscular HGB CONC 33.1 g/dL (32.0-36.0); Mean Corpuscular Hemoglobin 30.9 pg (27.0-31.0); Mean Corpuscular Volume 93.3 fl (78.0-98.0); Mean Platelet Volume 8.4 fL (7.4-10.4); Platelet Count 202 10x3/uL (130-400); RBC Distribution Width 11.9 % (11.5-14.5); White Blood Cell (WBC) Count 6.9 10x3/uL (4.8-10.8)
[2022-09-02 06:19] LABS: Anion Gap 10 mmol/L (10-20); BUN (Urea Nitrogen) 15 mg/dL (8.4-25.7); Calc. Creatinine Clearance 200 mL/min (70-130); Calcium 8.5 mg/dL (7.8-10.44); Carbon Dioxide 26 mmol/L (22-29); Chloride 99 mmol/L (98-107); Estimated GFR 105; Glucose 101 mg/dL (70-105); Potassium 3.7 mmol/L (3.5-5.1); Sodium 131 mmol/L (136-145)
[2022-09-02] MEDS: Amlodipine 5 MG TAB PO SCH (08:22)
[2022-09-02] MEDS: Famotidine 20 MG TAB PO SCH ×2 (08:22→20:23)
[2022-09-02] MEDS: CEFAZOLIN 2 GM in Sodium Chloride 0.9% 100 ML IVPB SCH ×3 (08:22→23:15)
[2022-09-02] MEDS: HYDROcodone/Acetaminophen 5/325 mg Tablet PO PRN ×2 (12:37→23:15)
[2022-09-02] MEDS: Insulin Glargine 30 UNITS/0.3 ML VIAL SC SCH (20:23)
[2022-09-03 06:05] LABS: #Basophils 0.1 thou/uL (0.0-0.2); #Eosinphils 0.3 thou/uL (0.0-0.7); #Lymphocytes 2.1 thou/uL (1.20-3.40); #Neutrophils 4.7 thou/uL (1.40-6.50); %Basophils 1.2 % (0.0-1.0); %Eosinophils 3.3 % (0.0-10.0); %Lymphocytes 25.5 % (21.0-51.0); %Monocytes 12.8 % (0.0-10.0); %Neutrophils 57.2 % (42.0-75.0); Hemoglobin 10.2 g/dL (14.0-18.0); Mean Corpuscular HGB CONC 33.9 g/dL (32.0-36.0); Mean Corpuscular Hemoglobin 31.7 pg (27.0-31.0); Mean Corpuscular Volume 93.5 fl (78.0-98.0); Mean Platelet Volume 8.1 fL (7.4-10.4); Platelet Count 201 10x3/uL (130-400); RBC Distribution Width 11.8 % (11.5-14.5); Red Blood Cell (RBC) Count 3.23 mill/uL (4.70-6.10); White Blood Cell (WBC) Count 8.2 10x3/uL (4.8-10.8)
[2022-09-03 06:29] LABS: Anion Gap 9 mmol/L (10-20); BUN (Urea Nitrogen) 17 mg/dL (8.4-25.7); Calc. Creatinine Clearance 200 mL/min (70-130); Calcium 8.7 mg/dL (7.8-10.44); Carbon Dioxide 28 mmol/L (22-29); Chloride 100 mmol/L (98-107); Estimated GFR 105; Glucose 88 mg/dL (70-105); Potassium 3.7 mmol/L (3.5-5.1); Sodium 133 mmol/L (136-145)
[2022-09-03] MEDS: CEFAZOLIN 2 GM in Sodium Chloride 0.9% 100 ML IVPB SCH ×3 (08:17→23:07)
[2022-09-03] MEDS: Amlodipine 5 MG TAB PO SCH (08:17)
[2022-09-03] MEDS: Famotidine 20 MG TAB PO SCH ×2 (08:18→21:07)
[2022-09-03] MEDS: HYDROcodone/Acetaminophen 5/325 mg Tablet PO PRN ×2 (16:10→23:07)
[2022-09-03] MEDS: Insulin Glargine 30 UNITS/0.3 ML VIAL SC SCH (21:06)
[2022-09-04 06:13] LABS: #Basophils 0.1 thou/uL (0.0-0.2); #Eosinphils 0.3 thou/uL (0.0-0.7); #Lymphocytes 2.1 thou/uL (1.20-3.40); #Neutrophils 3.2 thou/uL (1.40-6.50); %Basophils 0.8 % (0.0-1.0); %Eosinophils 4.7 % (0.0-10.0); %Lymphocytes 31.6 % (21.0-51.0); %Monocytes 14.6 % (0.0-10.0); %Neutrophils 48.3 % (42.0-75.0); Hemoglobin 10.4 g/dL (14.0-18.0); Mean Corpuscular HGB CONC 34.4 g/dL (32.0-36.0); Mean Corpuscular Volume 93.1 fl (78.0-98.0); Mean Platelet Volume 7.8 fL (7.4-10.4); Platelet Count 194 10x3/uL (130-400); RBC Distribution Width 11.9 % (11.5-14.5); Red Blood Cell (RBC) Count 3.24 mill/uL (4.70-6.10); White Blood Cell (WBC) Count 6.6 10x3/uL (4.8-10.8)
[2022-09-04 06:34] LABS: Anion Gap 10 mmol/L (10-20); BUN (Urea Nitrogen) 15 mg/dL (8.4-25.7); Calc. Creatinine Clearance 203 mL/min (70-130); Calcium 8.6 mg/dL (7.8-10.44); Carbon Dioxide 27 mmol/L (22-29); Chloride 99 mmol/L (98-107); Estimated GFR 106; Glucose 94 mg/dL (70-105); Potassium 3.6 mmol/L (3.5-5.1); Sodium 132 mmol/L (136-145)
[2022-09-04] MEDS: Famotidine 20 MG TAB PO SCH ×2 (08:40→20:14)
[2022-09-04] MEDS: Amlodipine 5 MG TAB PO SCH (08:40)
[2022-09-04] MEDS: CEFAZOLIN 2 GM in Sodium Chloride 0.9% 100 ML IVPB SCH ×3 (08:40→23:55)
[2022-09-04 13:47] LABS: #Basophils 0.1 thou/uL (0.0-0.2); #Eosinphils 0.2 thou/uL (0.0-0.7); #Lymphocytes 1.8 thou/uL (1.20-3.40); #Monocytes 0.8 thou/uL (0.11-0.59); #Neutrophils 3.6 thou/uL (1.40-6.50); %Basophils 1.3 % (0.0-1.0); %Lymphocytes 27.5 % (21.0-51.0); %Monocytes 12.9 % (0.0-10.0); %Neutrophils 55.4 % (42.0-75.0); Hemoglobin 10.2 g/dL (14.0-18.0); Mean Corpuscular HGB CONC 34.2 g/dL (32.0-36.0); Mean Corpuscular Hemoglobin 31.9 pg (27.0-31.0); Mean Corpuscular Volume 93.1 fl (78.0-98.0); Mean Platelet Volume 8.2 fL (7.4-10.4); Platelet Count 200 10x3/uL (130-400); RBC Distribution Width 11.9 % (11.5-14.5); Red Blood Cell (RBC) Count 3.21 mill/uL (4.70-6.10); White Blood Cell (WBC) Count 6.5 10x3/uL (4.8-10.8)
[2022-09-04 14:05] LABS: Anion Gap 10 mmol/L (10-20); BUN (Urea Nitrogen) 16 mg/dL (8.4-25.7); Calc. Creatinine Clearance 193 mL/min (70-130); Calcium 8.6 mg/dL (7.8-10.44); Carbon Dioxide 26 mmol/L (22-29); Chloride 98 mmol/L (98-107); Estimated GFR 104; Glucose 119 mg/dL (70-105); Potassium 3.8 mmol/L (3.5-5.1); Sodium 130 mmol/L (136-145)
[2022-09-04] MEDS: HumaLOG 300 UNITS/3 ML VIAL SC PRN (16:57)
[2022-09-04] MEDS: Insulin Glargine 30 UNITS/0.3 ML VIAL SC SCH (20:14)
[2022-09-04] MEDS: HYDROcodone/Acetaminophen 5/325 mg Tablet PO PRN (22:35)
[2022-09-05] MEDS: CEFAZOLIN 2 GM in Sodium Chloride 0.9% 100 ML IVPB SCH ×2 (08:58→15:48)
[2022-09-05] MEDS: Amlodipine 5 MG TAB PO SCH (08:59)
[2022-09-05] MEDS: Famotidine 20 MG TAB PO SCH ×2 (08:59→20:49)
[2022-09-05] MEDS ORDERED: CEFAZOLIN 2 GM in Sodium Chloride 0.9% 100 ML IVPB SCH (11:00)
[2022-09-05] MEDS: Insulin Glargine 30 UNITS/0.3 ML VIAL SC SCH (20:12)
[2022-09-05] MEDS: HYDROcodone/Acetaminophen 5/325 mg Tablet PO PRN (22:13)
[2022-09-06] MEDS: CEFAZOLIN 2 GM in Sodium Chloride 0.9% 100 ML IVPB SCH ×4 (00:18→23:33)
[2022-09-06] MEDS: Famotidine 20 MG TAB PO SCH ×2 (09:11→21:30)
[2022-09-06] MEDS: Amlodipine 5 MG TAB PO SCH (09:11)
[2022-09-06] MEDS ORDERED: Bupivacaine/Epinephrine 0.25% 30 ML VIAL ONE (15:39)
[2022-09-06] MEDS ORDERED: HYDROmorphone 0.5 MG/0.5 ML SYRINGE ONE ×3 (16:20→17:27)
[2022-09-06] MEDS ORDERED: fentaNYL PF 100 MCG/2 ML SYRINGE ONE (16:20)
[2022-09-06] MEDS ORDERED: Sodium Chloride 0.9% 100 ML ONE (16:27)
[2022-09-06] MEDS ORDERED: CEFAZOLIN 2 GM VIAL ONE (16:27)
[2022-09-06] MEDS ORDERED: Ondansetron PF 4 MG/2 ML Vial ONE ×2 (16:37)
[2022-09-06] MEDS ORDERED: PROPOFOL 200 MG/20 ML VIAL ONE (16:37)
[2022-09-06] MEDS ORDERED: Lidocaine 1% PF 5 ML VIAL ONE (16:37)
[2022-09-06] MEDS ORDERED: Morphine Sulfate 2 MG/ML SYRINGE SLOW IVP PRN (17:12)
[2022-09-06] MEDS ORDERED: Ondansetron HCl/PF 4 MG/2 ML Vial IVP PRN (17:12)
[2022-09-06] MEDS ORDERED: Promethazine HCl 25 MG/ML VIAL IM PRN (17:12)
[2022-09-06] MEDS ORDERED: HYDROmorphone 2 MG/ML VIAL SLOW IVP PRN (17:12)
[2022-09-06] MEDS: Insulin Glargine 30 UNITS/0.3 ML VIAL SC SCH (21:30)
[2022-09-07 05:23] LABS: #Basophils 0.1 thou/uL (0.0-0.2); #Eosinphils 0.2 thou/uL (0.0-0.7); #Lymphocytes 1.7 thou/uL (1.20-3.40); #Monocytes 0.8 thou/uL (0.11-0.59); #Neutrophils 2.9 thou/uL (1.40-6.50); %Basophils 1.4 % (0.0-1.0); %Eosinophils 4.3 % (0.0-10.0); %Lymphocytes 30.2 % (21.0-51.0); %Monocytes 14.1 % (0.0-10.0); %Neutrophils 49.9 % (42.0-75.0); Hemoglobin 9.3 g/dL (14.0-18.0); Mean Corpuscular HGB CONC 33.6 g/dL (32.0-36.0); Mean Corpuscular Hemoglobin 31.5 pg (27.0-31.0); Mean Corpuscular Volume 93.7 fl (78.0-98.0); Mean Platelet Volume 7.9 fL (7.4-10.4); Platelet Count 182 10x3/uL (130-400); RBC Distribution Width 11.8 % (11.5-14.5); Red Blood Cell (RBC) Count 2.97 mill/uL (4.70-6.10); White Blood Cell (WBC) Count 5.7 10x3/uL (4.8-10.8)
[2022-09-07 05:39] LABS: Anion Gap 9 mmol/L (10-20); BUN (Urea Nitrogen) 18 mg/dL (8.4-25.7); CRP (Inflammatory) 2.39 mg/dL (= or < 0.5); Calc. Creatinine Clearance 196 mL/min (70-130); Calcium 8.5 mg/dL (7.8-10.44); Carbon Dioxide 26 mmol/L (22-29); Chloride 100 mmol/L (98-107); Estimated GFR 105; Glucose 112 mg/dL (70-105); Potassium 3.6 mmol/L (3.5-5.1); Sodium 131 mmol/L (136-145)
[2022-09-07] MEDS: Morphine 2 MG/ML VIAL SLOW IVP PRN ×2 (08:47→18:40)
[2022-09-07] MEDS: Amlodipine 5 MG TAB PO SCH (08:50)
[2022-09-07] MEDS: CEFAZOLIN 2 GM in Sodium Chloride 0.9% 100 ML IVPB SCH ×2 (08:51→15:56)
[2022-09-07] MEDS: Famotidine 20 MG TAB PO SCH ×2 (08:51→21:08)
[2022-09-07] MEDS: Insulin Glargine 30 UNITS/0.3 ML VIAL SC SCH (21:09)
[2022-09-08] MEDS: CEFAZOLIN 2 GM in Sodium Chloride 0.9% 100 ML IVPB SCH ×2 (00:08→08:57)
[2022-09-08] MEDS: HYDROcodone/Acetaminophen 5/325 mg Tablet PO PRN (00:46)
[2022-09-08 08:04] VITALS: TEMP 98
[2022-09-08] MEDS: Famotidine 20 MG TAB PO SCH (08:57)
[2022-09-08] MEDS: Amlodipine 5 MG TAB PO SCH (09:00)
[2022-09-08 16:15] VITALS: BP 145/81
== END 2022-09-08 18:15 | disposition home or self-care (01) | DRG 854 ==
LOC: ERS 14:34 → ERHOLD 22:51 → MSONC 08-23 20:45
PROVIDERS: ADMIT Student in an Organized Health Care Education/Training Program; ATTEND Family Medicine
PROC: 3E03329 Introduction of Other Anti-infective into Peripheral Vein, Percutaneous Approach (ICD-10-PCS; 2022-08-22)
PROC: 0RBE0ZZ Excision of Right Sternoclavicular Joint, Open Approach (ICD-10-PCS; principal; 2022-08-23)
PROC: 0RBN0ZZ Excision of Right Wrist Joint, Open Approach (ICD-10-PCS; 2022-08-23)
PROC: 0HBMXZZ Excision of Right Foot Skin, External Approach (ICD-10-PCS; 2022-08-24)
PROC: B24BZZ4 Ultrasonography of Heart with Aorta, Transesophageal (ICD-10-PCS; 2022-08-29)
PROC: B548ZZA Ultrasonography of Superior Vena Cava, Guidance (ICD-10-PCS; 2022-09-02)
PROC: 02HV33Z Insertion of Infusion Device into Superior Vena Cava, Percutaneous Approach (ICD-10-PCS; 2022-09-02)
PROC: 0RBF0ZZ Excision of Left Sternoclavicular Joint, Open Approach (ICD-10-PCS; 2022-09-06)
DX: A41.02 Sepsis due to Methicillin resistant Staphylococcus aureus (principal); E87.1 Hypo-osmolality and hyponatremia; L03.113 Cellulitis of right upper limb; M86.141 Other acute osteomyelitis, right hand; N17.9 Acute kidney failure, unspecified; M00.2 Other streptococcal arthritis and polyarthritis; Z68.41 Body mass index [BMI] 40.0-44.9, adult; Z16.11 Resistance to penicillins; L03.313 Cellulitis of chest wall; M86.112 Other acute osteomyelitis, left shoulder; Z51.5 Encounter for palliative care; E11.69 Type 2 diabetes mellitus with other specified complication; Z20.822 Contact with and (suspected) exposure to COVID-19; F10.20 Alcohol dependence, uncomplicated; E11.65 Type 2 diabetes mellitus with hyperglycemia; I10 Essential (primary) hypertension; E80.6 Other disorders of bilirubin metabolism; E66.01 Morbid (severe) obesity due to excess calories; L84 Corns and callosities; K74.60 Unspecified cirrhosis of liver; Z91.199 Patient's noncompliance with other medical treatment and regimen due to unspecified reason; Z87.891 Personal history of nicotine dependence; E87.6 Hypokalemia
CPT/HCPCS: 36415; 36416; 36569; 70491; 71260; 76700; 80048; 80053; 80202; 83036; 83605; 84484; 85025; 85610; 85652; 86140; 87040; 87070; 87077; 87149; 87186; 87205; 87389; 87811; 93005; 93010; 93306; 93312; 97139; A9579; C1751; J1170; J1650; J1815; J2270; J2272; J2405; J2543; J2704; J3370; J3370-JW; J3490; J7050; J7120; Q9967; U0002

== ENCOUNTER 2023-06-02 15:27 | Emergency (ER) | payer SELFPAY ==
[2023-06-02 17:24] LABS: #Eosinphils 0.2 thou/uL (0.0-0.7); #Monocytes 0.6 thou/uL (0.11-0.59); #Neutrophils 1.8 thou/uL (1.40-6.50); %Basophils 0.8 % (0.0-1.0); %Eosinophils 4.1 % (0.0-10.0); %Lymphocytes 46.5 % (21.0-51.0); %Monocytes 11.7 % (0.0-10.0); %Neutrophils 36.7 % (42.0-75.0); Hematocrit 31.1 % (42.0-52.0); Hemoglobin 10.9 g/dL (14.0-18.0); Mean Corpuscular Volume 91.2 fl (78.0-98.0); Mean Platelet Volume 9.7 fL (7.4-10.4); Platelet Count 137 10x3/uL (130-400); RBC Distribution Width 13.2 % (11.5-14.5); Red Blood Cell (RBC) Count 3.41 mill/uL (4.70-6.10); White Blood Cell (WBC) Count 4.9 10x3/uL (4.8-10.8)
[2023-06-02 17:51] LABS: ALT (SGPT) 13 U/L (8-55); AST (SGOT) 30 U/L (5-34); Albumin 3.9 g/dL (3.5-5.0); Alkaline Phosphatase 134 U/L (40-110); Anion Gap 15 mmol/L (10-20); BUN (Urea Nitrogen) 12 mg/dL (8.4-25.7); Bilirubin, Total 0.5 mg/dL (0.2-1.2); Calc. Creatinine Clearance 0 mL/min (70-130); Calcium 9.1 mg/dL (7.8-10.44); Carbon Dioxide 23 mmol/L (22-29); Chloride 102 mmol/L (98-107); Estimated GFR 99; Glucose 99 mg/dL (70-105); Potassium 4.1 mmol/L (3.5-5.1); Protein, Total 7.9 g/dL (6.0-8.3); Sodium 136 mmol/L (136-145)
== END 2023-06-02 19:28 | disposition home or self-care (01) ==
LOC: ERS 15:27
DX: M25.561 Pain in right knee (principal); L03.115 Cellulitis of right lower limb; I10 Essential (primary) hypertension; E11.9 Type 2 diabetes mellitus without complications; Z87.891 Personal history of nicotine dependence; Z79.899 Other long term (current) drug therapy
CPT/HCPCS: 36415; 80053; 83605; 85025

== ENCOUNTER 2023-06-19 12:00 | Inpatient (IN) | payer OTHER, SELFPAY ==
[~2023-06-19 12:00] MED LIST changes: -Iopamidol-370 76% 500 ML 1 ML ONE; +Iopamidol-370 76% 500 ML MDV (1 ML CHARGE) ONE
[2023-06-19 12:50] LABS: #Basophils 0.1 thou/uL (0.0-0.2); #Eosinphils 0.2 thou/uL (0.0-0.7); #Monocytes 0.5 thou/uL (0.11-0.59); #Neutrophils 1.8 thou/uL (1.40-6.50); %Basophils 1.1 % (0.0-1.0); %Eosinophils 3.9 % (0.0-10.0); %Lymphocytes 54.4 % (21.0-51.0); %Monocytes 8.6 % (0.0-10.0); Hematocrit 33.2 % (42.0-52.0); Hemoglobin 11.6 g/dL (14.0-18.0); Mean Corpuscular HGB CONC 34.9 g/dL (32.0-36.0); Mean Corpuscular Volume 91.5 fl (78.0-98.0); Mean Platelet Volume 10.6 fL (7.4-10.4); Platelet Count 154 10x3/uL (130-400); RBC Distribution Width 12.3 % (11.5-14.5); Red Blood Cell (RBC) Count 3.63 mill/uL (4.70-6.10); White Blood Cell (WBC) Count 5.6 10x3/uL (4.8-10.8)
[2023-06-19 13:12] LABS: ALT (SGPT) 16 U/L (8-55); AST (SGOT) 35 U/L (5-34); Albumin 3.5 g/dL (3.5-5.0); Alkaline Phosphatase 143 U/L (40-110); Anion Gap 12 mmol/L (10-20); BUN (Urea Nitrogen) 10 mg/dL (8.4-25.7); Bilirubin, Total 0.5 mg/dL (0.2-1.2); Calc. Creatinine Clearance 0 mL/min (70-130); Calcium 8.8 mg/dL (7.8-10.44); Carbon Dioxide 24 mmol/L (22-29); Chloride 110 mmol/L (98-107); Estimated GFR 104; Globulin 4.5 g/dL (2.4-3.5); Glucose 114 mg/dL (70-105); Potassium 4.6 mmol/L (3.5-5.1); Sodium 141 mmol/L (136-145)
[2023-06-19] MEDS ORDERED: Piperacillin/Tazobactam 4.5 GM VIAL ONE (13:23)
[2023-06-19] MEDS ORDERED: Ketorolac Tromethamine 30 MG/ML VIAL ONE (13:23)
[2023-06-19] MEDS ORDERED: Sodium Chloride 0.9% 100 ML ONE (13:24)
[2023-06-19] MEDS ORDERED: Vancomycin (BATCH) 1.5 GM in Premix 1 BAG IVPB SCH (14:15)
[2023-06-19] MEDS ORDERED: Labetalol HCl 100 MG/20 ML VIAL ONE (15:37)
[2023-06-19] MEDS ORDERED: Lidocaine 1% (PF) 30 ML VIAL ONE ×2 (16:10→16:15)
[2023-06-19] MEDS ORDERED: Ondansetron PF 4 MG/2 ML Vial ONE (16:25)
[2023-06-19] MEDS ORDERED: Morphine 4 MG/ML VIAL ONE (16:25)
[2023-06-19] MEDS ORDERED: Ondansetron ODT 4 MG TAB PO PRN (17:32)
[2023-06-19] MEDS ORDERED: Ipratropium/Albuterol 3 ML NEB NEB PRN (17:32)
[2023-06-19] MEDS ORDERED: hydrALAZINE 20 MG/ML VIAL SLOW IVP PRN (17:32)
[2023-06-19] MEDS ORDERED: traMADol HCl 50 MG TAB PO PRN (17:32)
[2023-06-19] MEDS ORDERED: TETANUS, DIPHTHERIA TOX,ADULT (TDVAX) 0.5 ML VIAL IM ONE (17:32)
[2023-06-19] MEDS: Acetaminophen 325 MG TAB PO SCH ×2 (18:00→23:19)
[2023-06-19 21:38] VITALS: BMI 29.7
[2023-06-19] MEDS ORDERED: Amlodipine 10 MG TAB PO SCH (23:15)
[2023-06-19] MEDS ORDERED: Oxazepam 10 MG CAP PO SCH (23:15)
[2023-06-20] MEDS: Acetaminophen 325 MG TAB PO SCH ×4 (05:49→23:52)
[2023-06-20] MEDS ORDERED: Amlodipine 10 MG TAB PO SCH (09:00)
[2023-06-20] MEDS: Senokot S 8.6-50 MG TAB PO SCH ×2 (09:14→20:10)
[2023-06-20] MEDS: Oxazepam 10 MG CAP PO SCH ×3 (09:14→20:10)
[2023-06-20] MEDS: Amlodipine 10 MG TAB PO SCH (09:15)
[2023-06-21] MEDS: Acetaminophen 325 MG TAB PO SCH ×2 (04:55→12:54)
[2023-06-21 08:32] VITALS: TEMP 98.3
[2023-06-21] MEDS: Amlodipine 10 MG TAB PO SCH (09:40)
[2023-06-21] MEDS: Senokot S 8.6-50 MG TAB PO SCH (09:40)
[2023-06-21] MEDS: Oxazepam 10 MG CAP PO SCH (09:40)
[2023-06-21 12:46] VITALS: BP 137/84
== END 2023-06-21 14:16 | disposition home or self-care (01) | DRG 580 ==
LOC: ERS 12:00 → ERHOLD 15:54 → SURG B 20:00 → OBSVTOIN 06-20 15:42
PROVIDERS: ADMIT Surgery; ATTEND Surgery
PROC: 0JCN0ZZ Extirpation of Matter from Right Lower Leg Subcutaneous Tissue and Fascia, Open Approach (ICD-10-PCS; principal; 2023-06-20)
DX: S80.01XA Contusion of right knee, initial encounter (principal); L02.415 Cutaneous abscess of right lower limb; E11.9 Type 2 diabetes mellitus without complications; I10 Essential (primary) hypertension; V49.9XXD Car occupant (driver) (passenger) injured in unspecified traffic accident, subsequent encounter; Z98.890 Other specified postprocedural states; Z87.891 Personal history of nicotine dependence; F10.20 Alcohol dependence, uncomplicated
CPT/HCPCS: 36415; 80053; 83605; 85025; 87040; 97139; J1885; J2001; J2270; J2405; J2543; J3370; J3490; Q9967